=== PATIENT | female | born 1945 | race Caucasian/White ===

== ENCOUNTER → 2018-07-10 | Outpatient (CLI) | payer MEDICARE ==
[2018-07-10 17:47] LABS: COLLECTION METHOD CLEAN CATCH
[2018-07-10 17:56] LABS: MUCOUS Present /lpf; PH 6 (5-8); SQUAMOUS EPITHELIAL 0-2 /hpf; URINE APPEARANCE Hazy; URINE BACTERIA Rare /hpf; URINE BILIRUBIN Negative (NEGATIVE); URINE BLOOD 1+ (NEGATIVE); URINE COLOR Yellow; URINE GLUCOSE Negative (NEGATIVE); URINE KETONE Negative (NEGATIVE); URINE LEUKOCYTE ESTERASE 2+ (NEGATIVE); URINE NITRATE Negative (NEGATIVE); URINE PROTEIN(semi-quant) Negative (NEGATIVE); URINE RBC 20-50 /hpf; URINE UROBILINOGEN >=4.0 mg/dL (NEGATIVE)
== END ==
LOC: COL.LAB 17:44
PROVIDERS: Family Medicine
DX: R39.89 Other symptoms and signs involving the genitourinary system (principal)

== ENCOUNTER 2023-09-08 09:58 | Outpatient (CLI) | payer MEDICARE ==
[~2023-09-08] VITALS: Ht 167.6 cm; Wt 70.4 kg
[2023-09-08 10:07] VITALS: BP 135/77; PULSE 65; TEMP 97.7
[2023-09-08] MEDS ORDERED: OSCAL 500 TAB500 MG PO (10:09)
[2023-09-08] MEDS ORDERED: AZO URINARY PAI95 MG PO (10:10)
[2023-09-08] MEDS ORDERED: CRANBERRY 4001 EACH PO (10:10)
--- NOTE | 2023-09-08 10:45 | NUR ---
Pt tolerated prolia without issue. She is escorted out to elevator. Free of complaints at discharge.
== END 2023-09-08 10:45 | disposition home or self-care (01) ==
LOC: EUO 09:58
DX: M81.0 Age-related osteoporosis without current pathological fracture (principal)
CPT/HCPCS: J0897